=== PATIENT | female | born 1990 | race Caucasian/White ===

== ENCOUNTER 2021-09-06 07:35 | Emergency (ER) | payer MEDICAID ==
[~2021-09-06] VITALS: Ht 162.6 cm; Wt 99.8 kg
[2021-09-06 07:37] VITALS: BP_SYST 120
--- NOTE | 2021-09-06 07:49 | NUR ---
31YO F C/O LEFT ANKLE PAIN AFTER MISSING A STEP AND ROTATING IT YESTERDAY. PAIN 6/10, SHARP, WORSENED BY MOVEMENT. NO MEDS TAKEN. VSS. MILD SWELLING OF LEFT ANKLE NOTED. PULSES 5/5 ON BOTH LOWER EXTREMITIES. ERMD MADE AWARE OF PT STATUS.
[2021-09-06] MEDS ORDERED: TRAM50TA2 PO (08:27)
[2021-09-06] MEDS ORDERED: IBUP-1969 PO (08:27)
[2021-09-06 08:38] VITALS: BP_SYST 120
--- NOTE | 2021-09-06 08:39 | NUR ---
Patient given written and verbal discharge instructions and verbalizes understanding. ER MD discussed with patient the results and treatment provided. Patient in stable condition. Patient refused crutches. ID arm band removed. Rx of IBUPROFEN AND TRAMADOL given. Patient educated on pain management and to follow up with PMD. Pain Scale 4/10. Opportunity for questions provided and answered. Medication side effect fact sheet provided.
== END 2021-09-06 08:38 | disposition home or self-care (01) ==
LOC: SED 07:35
DX: S93.402A Sprain of unspecified ligament of left ankle, initial encounter (principal); W10.8XXA Fall (on) (from) other stairs and steps, initial encounter; Y93.89 Activity, other specified; Y92.89 Other specified places as the place of occurrence of the external cause; Y99.8 Other external cause status
CPT/HCPCS: 99283